=== PATIENT | female | born 1970 | race Two or more races ===

== ENCOUNTER 2017-11-30 14:24 | Outpatient (CLI) | payer OTHER | END 2017-11-30 14:49 | disposition home or self-care (01) | LOC: RAD 14:24 | DX: R91.8 Other nonspecific abnormal finding of lung field (principal) ==

== ENCOUNTER 2024-09-20 05:30 | Day surgery (SDC) | payer OTHER ==
[~2024-09-20 05:30] MED LIST: PREMPRO 0.45-11 EACH PO; STRATTERA80 MG PO; SYNTHROID50 MCG PO; WELLBUTRIN XL300 MG PO
[2024-09-20] MEDS ORDERED: POVIDONE-IODINE 118 ML BOTT TOP SCH (11:15)
[2024-09-20] MEDS ORDERED: PROMETHAZINE HCL 50 MG/ML AMPUL IM ONE (11:30)
[2024-09-20] MEDS ORDERED: MORPHINE SULFATE 4 MG/ML VIAL IV PRN (11:30)
== END 2024-09-20 14:40 | disposition home or self-care (01) ==
LOC: CIR.AMB 05:30
PROVIDERS: ATTEND Obstetrics & Gynecology
DX: N84.0 Polyp of corpus uteri (principal); D25.0 Submucous leiomyoma of uterus; Z88.6 Allergy status to analgesic agent; F41.8 Other specified anxiety disorders; F41.0 Panic disorder [episodic paroxysmal anxiety]